=== PATIENT | female | born 1985 | race Caucasian/White ===

== ENCOUNTER 2018-04-07 05:41 | Day surgery (SDC) | payer OTHER ==
[2018-04-03 15:39] VITALS: BMI 25.4
--- NOTE | 2018-04-06 13:38 | HP ---
HISTORY OF PRESENT ILLNESS: Ms. [place] is a pleasant 32-year-old woman here for evaluation of really what seems to be 2 separate issues, first of which being left-sided C6 pain and numbness, which started after a incident. She also has winging of her left scapula, which looks to be more of a peripheral nerve problem than from her neck. She has been seeing Dr. Naidu, who performed an EMG that is essentially normal, that she now has an MRI of disk from [place]. MRI did reveal C5-C6 disk herniation bilaterally that would fit her symptoms well. PAST MEDICAL HISTORY: Significant for migraines and headache. PAST SURGICAL HISTORY: Breast reduction, section, and shoulder surgery on her left shoulder. CURRENT MEDICATIONS: 1. Tylenol. 2. Tramadol. ALLERGIES: TO VARIOUS INSECT VENOM. PHYSICAL EXAMINATION: GENERAL: The patient is alert and oriented x3. NEUROLOGIC: Gait is normal. No ataxia. Upper extremity motor exam is essentially normal. She does have some minor weakness secondary to pain in the left upper extremity with elbow flexion and extension against resistance, also with some rotation of the shoulder joint as well. She does have obvious winging and atrophy of the left supraspinatus muscle as compared to the right. ASSESSMENT: Winging of the scapula and cervical radiculopathy. PLAN: Dr. Gruber met with the patient, reviewed imaging and advocated for C5-C6 ACDF. He explained to the patient the risks, benefits, and alternatives of the procedure. The patient expressed understanding, which before surgery as discussed. I do believe the patient is mentally competent and capable of making medical decisions for herself. We will move forward with surgery as planned. Job ID: [id number]
[2018-04-07] MEDS ORDERED: Thrombin 5000 UNITS/5 ML VIAL ONE (06:16)
[2018-04-07] MEDS ORDERED: CEFAZOLIN 2 GM/50 ML BAG ONE ×2 (06:42→09:59)
[2018-04-07] MEDS ORDERED: Midazolam HCl 2 mg/2 ml Vial ONE ×2 (06:54→06:58)
[2018-04-07] MEDS ORDERED: Fentanyl 250 MCG/5 ML VIAL ONE (06:58)
[2018-04-07] MEDS ORDERED: Fentanyl 100 MCG/2 ML VIAL ONE ×2 (08:26→08:49)
[2018-04-07] MEDS ORDERED: Ketorolac Tromethamine 30 MG/ML VIAL ONE (08:26)
[2018-04-07] MEDS ORDERED: HYDROmorphone 2 MG/ML VIAL ONE (08:33)
--- NOTE | 2018-04-07 09:59 | OP ---
DATE OF PROCEDURE: 04/07/2018 TOY PACKER: Bhavesh Zavala PA-C INDICATION: Pain and weakness. DIAGNOSIS: Cervical radiculopathy. PROCEDURES: Anterior cervical diskectomy and fusion, C5-C6. ANESTHESIA: General. DESCRIPTION OF PROCEDURE: The patient was brought into the operating room, placed under general anesthesia. She was placed on table in supine position. A transverse incision was planned over the lateral aspect of the neck on the right. After prepping and draping and after a preoperative pause, the incision was created. The underlying platysma muscle was identified and incised. A blunt tissue plane anterior to the sternocleidomastoid muscle was used to gain access to the prevertebral space. After gaining access to the prevertebral space and confirmed the appropriate level. Self-retaining retractors were placed and an annulotomy was performed at C5-C6 disk space. With distraction pin, the space was distracted and all disk material as well as anterior and posterior osteophytes were removed. A 6 mm lordotic PEEK cage packed with allograft and autograft material was placed within the interbody space. An anterior cervical plate was then fashioned to the front of spine and secured with a total of four fixed screws. Midline and lateral structures were inspected and found to be free from significant trauma. The wound was irrigated. Hemostasis was maintained throughout. The wound was then closed in anatomic layers and a pressure dressing was applied. There were no known procedural complications. Job ID: [id number]
[2018-04-07] MEDS ORDERED: Rocuronium Bromide 10 MG/ML (10ML VIAL) ONE (16:47)
[2018-04-07] MEDS ORDERED: Lidocaine 1% PF 5 ML VIAL ONE (16:47)
[2018-04-07] MEDS ORDERED: Glycopyrrolate 0.2 MG/ML 5 ML SYRINGE ONE (16:47)
[2018-04-07] MEDS ORDERED: PROPOFOL 200 MG/20 ML VIAL ONE (16:47)
[2018-04-07] MEDS ORDERED: Ondansetron PF 4 MG/2 ML Vial ONE (16:47)
[2018-04-07] MEDS ORDERED: Dexamethasone 20 MG/5 ML VIAL ONE (16:47)
== END 2018-04-07 10:35 | disposition home or self-care (01) ==
LOC: SDC 05:41
PROVIDERS: ATTEND Neurological Surgery
PROC: 0RG10A0 Fusion of Cervical Vertebral Joint with Interbody Fusion Device, Anterior Approach, Anterior Column, Open Approach (ICD-10-PCS; principal; 2018-04-07)
PROC: 0RT30ZZ Resection of Cervical Vertebral Disc, Open Approach (ICD-10-PCS; principal; 2018-04-07)
DX: M50.122 Cervical disc disorder at C5-C6 level with radiculopathy (principal); M95.8 Other specified acquired deformities of musculoskeletal system; G43.909 Migraine, unspecified, not intractable, without status migrainosus; E07.9 Disorder of thyroid, unspecified; Z91.038 Other insect allergy status
CPT/HCPCS: 76000; 96374; C1713; C1776; J1100; J1170; J1885; J2001; J2250; J2405; J2704; J3010

== ENCOUNTER 2020-09-08 21:35 | Emergency (ER) | payer OTHER ==
[2020-09-08] MEDS ORDERED: Morphine 10 MG/ML VIAL ONE (23:55)
== END 2020-09-09 00:18 | disposition home or self-care (01) ==
LOC: ERS 21:35
DX: S16.1XXA Strain of muscle, fascia and tendon at neck level, initial encounter (principal); S29.012A Strain of muscle and tendon of back wall of thorax, initial encounter; Z87.891 Personal history of nicotine dependence; V49.9XXA Car occupant (driver) (passenger) injured in unspecified traffic accident, initial encounter
CPT/HCPCS: 72072; 72125; 96372; J2270